=== PATIENT | female | born 1995 | race African-American/Black ===

== ENCOUNTER 2018-02-12 22:19 | Emergency (ER) | payer MEDICAID ==
[~2018-02-12] VITALS: Ht 157.5 cm; Wt 60.0 kg
[~2018-02-12 22:19] MED LIST: DICL50 PO; DIFL200T PO; HYDR-3533 PO; METR-1 PO; SPRI28TA PO
[2018-02-12 22:23] VITALS: BP 134/64; PULSE 70; RESP 18; TEMP 98.3; O2SAT 100
--- NOTE | 2018-02-12 23:37 | PD ---
HPI Chief Complaint: Laceration/Skin Injury Time Seen by Provider: 23:28 Travel History International Travel<30 days: No Contact w/Intl Traveler<30days: No Traveled to known affect area: No History of Present Illness HPI 22yo F with no PMH presents to the ED with c/o laceration over right eye brow after running into a door at 5pm today. Denies any LOC, visual changes, chest pain, sob, n/v, abdominal pain, focal weakness or numbness. Pain is where the laceration is. Pt's best friend is with her and said she is acting like herself. He also witnessed the event and said she cried immediately. PFSH Past Medical History Medical History: Denies Significant Hx Diminished Hearing: No Tetanus Vaccination: Unknown Influenza Vaccination: No ?: Not LMP: 02/12/2018 Past Surgical History Abdominal Surgery: Yes (umbelical hernia repair) Social History Alcohol Use: No Tobacco Use: No Substance Use: No Allergies-Medications (Allergen,Severity, Reaction): Coded Allergies: No Known Allergies (Unverified Adverse Reaction, Unknown, 02/12/18) Reported Meds & Prescriptions Reported Meds & Active Scripts Active Flagyl (Metronidazole) 500 Mg Tab 500 Mg PO BID PRN Diflucan (Fluconazole) 200 Mg Tab 200 Mg PO DAILY Sprintec 28 (Norgestimate-Ethinyl Estradiol) 0.25-35 mg-Mcg Tab 1 Tab PO DAILY Voltaren (Diclofenac Sodium) 50 Mg Tabec 50 Mg PO TID Lortab 5 mg/325 mg (Hydrocodone/Acetaminophen 5 mg/325 mg) 1 Tab 1 Tab PO Q8HR PRN Review of Systems Except as stated in HPI: all other systems reviewed are Neg Physical Exam Narrative GENERAL: 22yo F not in distress. SKIN: Focused skin assessment warm/dry. HEAD: +1.5cm laceration right eyebrow. EYES: Pupils equal and round at 4mm bilaterally. EOMI. ENT: No nasal bleeding or discharge. Mucous membranes pink and moist. NECK: Trachea midline. No JVD. CARDIOVASCULAR: Regular rate and rhythm. No murmur appreciated. RESPIRATORY: No accessory muscle use. Clear to auscultation. Breath sounds equal bilaterally. GASTROINTESTINAL: Abdomen soft, non-tender, nondistended. MUSCULOSKELETAL: No obvious deformities. No clubbing. No cyanosis. No edema. NEUROLOGICAL: Awake and alert. No obvious cranial nerve deficits. Motor grossly within normal limits in all extremities. Sensation equal. Normal speech. PSYCHIATRIC: Appropriate mood and affect; insight and judgment normal. Data Data Last Documented VS Vital Signs Date Time Temp Pulse Resp B/P (MAP) Pulse Ox O2 Delivery O2 Flow Rate FiO2 02/12/18 22:23 98.3 70 18 134/64 (87) 100 Orders Orders Lidocaine 1% Inj (50 Ml) (Xylocaine 1% I (02/12/18 23:45) Tetanus/Diphtheria Tox Adult (Tetanus/Di (02/13/18 00:15) MDM Medical Decision Making Medical Screen Exam Complete: Yes Emergency Medical Condition: Yes Differential Diagnosis Eyebrow laceration Narrative Course 22yo F with eyebrow laceration after running into a door today. No other complaints. Pt is acting like herself. No focal neurologic deficits. Laceration repaired. Tetanus updated. Return precautions given. Procedures Procedure Narrative LACERATION LOCATION: Right eyebrow LENGTH: 1.5cm NUMBER OF STITCHES/WERNER: 3 REPAIR: The area of the laceration was prepped with Betadine and sterilely draped. The laceration was infiltrated with 2cc of 1% lidocaine. The wound was copiously irrigated and explored without evidence of foreign body, tendon injury or neurovascular injury. The wound was closed using 6-0 prolone. This was a single layer repair. Patient tolerated the procedure well. Diagnosis Primary Impression: Laceration of eyebrow Qualified Codes: S01.111A - Laceration without foreign body of right eyelid and periocular area, initial encounter Additional Impression: Head injury Qualified Codes: S09.90XA - Unspecified injury of head, initial encounter Patient Instructions: General Instructions Departure Forms: Tests/Procedures Additional Instructions: Please follow up with your primary care physician or return to the ED for suture removal in 5 days. Return to the ED if there are signs of infection. Med/Other Pt SpecificInfo: Prescription(s) given Scripts Acetaminophen (Tylenol) 325 Mg Tab 650 MG PO Q6H Y for PAIN SCALE 1 TO 4, #20 TAB 0 Refills Prov: GonzalezRissa 02/13/18 Disposition: 01 DISCHARGE HOME Condition: Stable Rissa Gonzalez DO February 12, 2018 23:37
[2018-02-12] MEDS ORDERED: LIDOCAINE HCL 1% 50 ML VIAL INFIL ONE (23:45)
[2018-02-13] MEDS ORDERED: TETANUS/DIPHTHERIA TOXOID ADULT 0.5 ML VIAL IM ONE (00:15)
[2018-02-13] MEDS ORDERED: TYLE325T PO (00:19)
== END 2018-02-13 00:49 | disposition home or self-care (01) ==
LOC: NEPD 22:19
DX: S01.111A Laceration without foreign body of right eyelid and periocular area, initial encounter (principal); W22.8XXA Striking against or struck by other objects, initial encounter; Z23 Encounter for immunization
CPT/HCPCS: 12011; 90471; 90714